=== PATIENT | female | born 1950 | race Caucasian/White ===

== ENCOUNTER 2018-04-29 13:14 | Day surgery (SDC) | payer OTHER ==
--- OUTSIDE RECORDS SUMMARY | 2018-04-29 13:16 | XMS REPORT | Clinical Summary ---
:1950 Author Organization [facility] Address [address] [place] [address] Care Team Providers Name Role Phone Asked, No Pcp Primary Care Provider Unavailable Allergies Active Allergy Reactions Severity Noted Date Comments Aspirin 10/25/2015 Medications Medication Sig Dispensed Refills Start Date End Date Status simvastatin (ZOCOR) 20 TK 1 T PO QHS 5 09/07/2015 Active MG tablet JANUMET 50-1,000 mg per TK 1 T PO BID. 4 09/23/2015 Active tablet HYDROcodone-acetaminophe TK 1 T PO Q 6 H 0 10/22/2015 Active n (NORCO) 7.5-325 mg per PRN P tablet Active Problems Problem Noted Date Closed displaced fracture of right patella with routine healing 12/28/2015 Social History Tobacco Use Types Packs/Day Years Used Date Never Smoker Smokeless Tobacco: Never Used Sex Assigned at Date Recorded Not on file Job Start Date Occupation Industry Not on file Not on file Not on file Travel History Travel Start Travel End No recent travel history available. Last Filed Vital Signs Not on file Plan of Treatment Health Maintenance Due Date Last Done Comments BREAST CANCER SCREENING 05/05/2001 COLON CANCER SCREENING 05/05/2001 SHINGLES VACCINES (#1) 05/05/2001 65+ PNEUMOCOCCAL VACCINE (1 of 2 - PCV13) 05/05/2016 PNEUMOCOCCAL POLYSACCHARIDE VACCINE AGE 65 AND OVER 05/05/2016 INFLUENZA VACCINE 10/03/2017 Results Not on fileafter 04/28/2017 Insurance Payer Benefit Plan / Group Subscriber ID Type Phone Address AETNA AETNA HMO,POS,EPO, MC/EC xxxxxxxxxx HMO Advance Directives Patient has advance care planning documents on file. For more information, please contact:Hamzah Russell[address] [place] [address]
[2018-04-29] MEDS ORDERED: NS 0.9% VIAL 10 ML ONE (13:32)
[2018-04-29] MEDS ORDERED: PHENYLEPHRINE 10% OPTH 5ML ONE (13:39)
[2018-04-29] MEDS ORDERED: NA CHLORIDE 0.9% 500 ML ONE (13:39)
[2018-04-29] MEDS ORDERED: CYCLOPENTOLATE 1% OPTH 2 ML ONE (13:40)
[2018-04-29] MEDS ORDERED: PHENYLEPHRINE 10% OPTH 5ML OPTH ONE ×2 (13:50→13:55)
[2018-04-29] MEDS ORDERED: CYCLOPENTOLATE 1% OPTH 2 ML OPTH ONE ×2 (13:50→13:55)
[2018-04-29] MEDS: BUPIVACAINE 0.25% PF 10 ML VIAL ONE ×2 (14:02→14:50)
[2018-04-29] MEDS: TETRACAINE HCL 0.5% 2ML OPTH ONE ×2 (14:02→14:49)
[2018-04-29] MEDS: LIDOCAINE 2% MPF 5 ML VIAL ONE ×2 (14:03→14:50)
[2018-04-29] MEDS: BALANCED SALT IRRIG PLAIN 500 ML BTL IRR ONE ×2 (14:44→15:05)
[2018-04-29] MEDS: EPINEPHRINE/PF 1 MG/ML AMP ONE ×2 (14:45→15:05)
[2018-04-29] MEDS: DUOVISC 1 KIT OPTH ONE ×4 (14:45→15:24)
[2018-04-29] MEDS: MOXIFLOXACIN HCL 10 DROPS/ML **OR USE OPTH ONE ×2 (14:46→15:30)
[2018-04-29] MEDS ORDERED: LIDOCAINE 1% MPF 5 ML VIAL ONE (14:47)
[2018-04-29] MEDS ORDERED: PROPOFOL 200 MG/20 ML VIAL IV ONE (14:47)
[2018-04-29] MEDS ORDERED: MOXIFLOXACIN HCL 10 DROPS/ML **OR USE OPTH ONE (15:22)
--- NOTE | 2018-04-29 15:37 | P.BOP ---
Preoperative diagnosis: Nuclear sclerotic cataract OS Postoperative diagnosis: Same Primary procedure: Phacoemulsification with IOL OS Estimated blood loss: None Anesthesia: Local (Subtenon's infusion with anesthesia for cataract surgery) Complications: None Implants: SA60WF +23.0 Transferred to: Other (Day surgery) Condition: Good
--- NOTE | 2018-04-30 02:57 | OP ---
Date of Procedure: 04/29/2018 Surgeon: Kiera Davis MD Anesthesiologist: Roc Crandall CRNA and Eleazar Petit MD. Preoperative Diagnosis: Nuclear sclerotic cataract, left eye. Operation Performed: Phacoemulsification with intraocular lens implant, left eye. Anesthesia: Per cataract surgery. Complications: None. Description Of Procedure: In day surgery, the patient was prepped with Betadine and draped. A conju nctival incision was made in the inferior nasal quadrant with Gregorio scissors. A sub-Tenon block c onsisting of a 1:1 mixture of 2% Xylocaine and 0.25% bupivacaine was placed through the conjunctival incision with a blunt cannula. A Honan balloon was placed over the eye and the patient was transferr ed to the operating room. In the operating room the patient was prepped and draped in the usual sterile fashion for ophthalmic surgery. A lid speculum was placed in the left eye. Two paracentesis sites were made superiorly and inferiorly in the limbal cornea. Viscoat was placed in the anterior chamber and a crescent blade wa s used to make a corneal groove and tunnel, and a keratome was used to enter the anterior chamber. P rovisc was placed in the anterior chamber and a 360 degree capsulotomy was performed with a cystitome . The lens was hydrodissected with BSS and rotated freely. The lens was removed with a stop and cho p technique. 33.0 Phaco CDE was used to remove the lens. Residual cortex was removed with the irrig ation and aspiration. Provisc was placed in the capsular bag. An SA60WF +23.0 lens was placed in th e capsular bag without complications. Irrigation and aspiration was used to remove residual viscoela stic. The paracentesis sites were hydrated with BSS. The wound and paracentesis sites were inspecte d and found to be watertight. Vigamox 0.07 cc was placed intracamerally at the end of the procedure. The eye was irrigated with balanced salt solution. The eye was patched with a soft cotton patch an d Hudson metal shield. The patient was returned to day surgery in good condition. Comments: Discharge Instructions: Ms. Howe is discharged to home in good condition. She is to follow up with Dr. Davis this afternoon and in the morning. TIANA/MODL Voice ID: [id number] Report ID: [id number]
== END 2018-04-29 16:15 | disposition home or self-care (01) ==
LOC: OR 13:14
PROVIDERS: ATTEND Ophthalmology Retina Specialist
PROC: 08RK3JZ Replacement of Left Lens with Synthetic Substitute, Percutaneous Approach (ICD-10-PCS; principal; 2018-04-29 12:30)
DX: H25.12 Age-related nuclear cataract, left eye (principal); H04.123 Dry eye syndrome of bilateral lacrimal glands; E11.9 Type 2 diabetes mellitus without complications; I10 Essential (primary) hypertension; E78.00 Pure hypercholesterolemia, unspecified; J45.909 Unspecified asthma, uncomplicated; M19.90 Unspecified osteoarthritis, unspecified site; Z87.820 Personal history of traumatic brain injury; Z83.3 Family history of diabetes mellitus; Z82.49 Family history of ischemic heart disease and other diseases of the circulatory system
CPT/HCPCS: 82962; 66984; J2704; J0171

== ENCOUNTER 2018-07-22 06:58 | Day surgery (SDC) | payer OTHER ==
--- OUTSIDE RECORDS SUMMARY | 2018-07-22 07:02 | XMS REPORT | Clinical Summary ---
:1950 Author Organization [facility] Address [address] [place] [id number] Care Team Providers Name Role Phone Asked, [...] AGE 65 AND OVER 05/05/2016 INFLUENZA VACCINE 10/03/2018 Results Not on fileafter 07/21/2017 Advance Directives Patient has advance care planning documents on file. For more information, please contact:Hamzah Shane[address] [place] [address]
[2018-07-22] MEDS ORDERED: NA CHLORIDE 0.9% 0 ML ONE (07:14)
[2018-07-22] MEDS ORDERED: CYCLOPENTOLATE 1% OPTH 2 ML ONE (07:17)
[2018-07-22] MEDS ORDERED: BUPIVACAINE 0.25% PF 10 ML VIAL ONE (07:17)
[2018-07-22] MEDS ORDERED: NA CHLORIDE 0.9% 500 ML ONE (07:17)
[2018-07-22] MEDS ORDERED: LIDOCAINE 2% MPF 5 ML VIAL ONE ×2 (07:17→08:27)
[2018-07-22] MEDS ORDERED: PHENYLEPHRINE 10% OPTH 5ML ONE (07:17)
[2018-07-22] MEDS ORDERED: TETRACAINE HCL 0.5% 4ML OPTH ONE (07:18)
[2018-07-22] MEDS ORDERED: PHENYLEPHRINE 10% OPTH 5ML OPTH ONE ×2 (07:18→07:33)
[2018-07-22] MEDS ORDERED: CYCLOPENTOLATE 1% OPTH 2 ML OPTH ONE ×2 (07:23→07:33)
[2018-07-22] MEDS ORDERED: NS 0.9% VIAL 10 ML ONE (08:07)
[2018-07-22] MEDS: BALANCED SALT IRRIG PLAIN 500 ML BTL IRR ONE ×2 (08:07→08:32)
[2018-07-22] MEDS: EPINEPHRINE/PF 1 MG/ML AMP ONE ×2 (08:08→08:32)
[2018-07-22] MEDS: DUOVISC 1 KIT OPTH ONE ×2 (08:08→08:50)
[2018-07-22] MEDS: MOXIFLOXACIN HCL 10 DROPS/ML **OR USE OPTH ONE ×3 (08:09→09:01)
[2018-07-22] MEDS ORDERED: PROPOFOL 200 MG/20 ML VIAL IV ONE (08:27)
[2018-07-22] MEDS ORDERED: FENTANYL CITR 100 MCG/2 ML ONE (08:58)
[2018-07-22] MEDS ORDERED: LIDOCAINE 1% MPF 2 ML AMPULE ONE (08:58)
--- NOTE | 2018-07-22 09:10 | P.BOP ---
Preoperative diagnosis: Nuclear sclerotic and cortical cataract OD Postoperative diagnosis: Same Primary procedure: Phacoemulsification with IOL OD Estimated blood loss: None Anesthesia: Local (Subtenon's infusion with anesthesia for cataract surgery) Complications: None Implants: SA60WF +23.5 Transferred to: Other (Day surgery) Condition: Good
--- NOTE | 2018-07-22 16:43 | OP ---
Date of Procedure: 07/22/2018 Surgeon: Kiera Davsi MD Preoperative Diagnosis: Nuclear sclerotic cataract and cortical cataract right eye. Operation Performed: Phacoemulsification with intraocular lens implant, right eye. Anesthesia: Roc Snow CRNA Anesthesia: Per cataract surgery. Complications: None Description Of Procedure: In day surgery, the patient was prepped with Betadine and draped. A conju nctival incision was made in the inferior nasal quadrant with Gregorio scissors. A sub-Tenon block c onsisting of a 1:1 mixture of 2% Xylocaine and 0.25% bupivacaine was placed through the conjunctival incision with a blunt cannula. A Honan balloon was placed over the eye and the patient was transferr ed to the operating room. In the operating room the patient was prepped and draped in the usual sterile fashion for ophthalmic surgery. A lid speculum was placed in the right eye. Two paracentesis sites were made superiorly an d inferiorly in the limbal cornea. Viscoat was placed in the anterior chamber and a crescent blade w as used to make a corneal groove and tunnel, and a keratome was used to enter the anterior chamber. Provisc was placed in the anterior chamber and a 360 degree capsulotomy was performed with a cystitom e. The lens was hydrodissected with BSS and rotated freely. The lens was removed with a stop and ch op technique. 18.14 phaco CDE was used to remove the lens. Residual cortex was removed with the irr igation and aspiration. Provisc was placed in the capsular bag. A SA60WF +23.5 Lens was placed in t he capsular bag without complications. Irrigation and aspiration were used to remove residual viscoe lastic. The paracentesis sites were hydrated with BSS. The wound and paracentesis sites were inspec dash and found to be watertight. Vigamox 0.07 cc was placed intracamerally at the end of the procedur e. The eye was irrigated with balanced salt solution. The eye was patched with a soft cotton patch and Hudson metal shield. The patient was returned to day surgery in good condition. Comments: Extra Viscoat was used. A 1% preservative-free lidocaine was placed in the anterior chamb er in the middle of the surgery for pain control. Discharge Instructions: Ms. Howe is discharged to home. She is to follow up with Dr. Davis' s office this afternoon and in the morning. TIANA/ILYA Voice ID: [id number] Report ID: [id number]
== END 2018-07-22 09:35 | disposition home or self-care (01) ==
LOC: OR 06:58
PROVIDERS: ATTEND Ophthalmology Retina Specialist
PROC: 08RJ3JZ Replacement of Right Lens with Synthetic Substitute, Percutaneous Approach (ICD-10-PCS; principal; 2018-07-22 08:30)
DX: H25.11 Age-related nuclear cataract, right eye (principal); H25.011 Cortical age-related cataract, right eye; E11.9 Type 2 diabetes mellitus without complications; E78.00 Pure hypercholesterolemia, unspecified; I10 Essential (primary) hypertension; Z79.4 Long term (current) use of insulin; Z79.899 Other long term (current) drug therapy; Z87.820 Personal history of traumatic brain injury
CPT/HCPCS: 66984; 82962; J2704; J0171; J3010; J2001

== ENCOUNTER 2021-02-07 13:56 | Emergency (ER) | payer OTHER ==
--- OUTSIDE RECORDS SUMMARY | 2021-02-07 13:59 | XMS REPORT | Continuity of Care Document ---
:1950 Author Organization [facility] t Address [address] [place] [address] [address]. [address] [place] [address] Care Team Providers Name Role Phone MELVIN Attending Clinician Unavailable Problems This patient has no known problems. Allergies, Adverse Reactions, Alerts This patient has no known allergies or adverse reactions. Medications This patient has no known medications. Procedures This patient has no known procedures. Encounters Start End Encounter Admission Attending Care Care Encounter Source Date/Time Date/Time Type Type Clinicians Facility Department ID 2020-05-17 2020-05-17 Outpatient MELVIN [facility] [id number] [address] [place] 00:00:00 00:00:00 GENARO [address] 2020-04-26 2020-04-26 Outpatient [facility] [id number] [address] [place] 00:00:00 00:00:[address] Results This patient has no known results.
[2021-02-07] MEDS ORDERED: KETOROLAC 30 MG/ML INJ ONE (14:37)
--- NOTE | 2021-02-07 14:46 | RAD REPORT ---
EXAM DESCRIPTION: CT - Thorax Wo Con - 02/07/2021 2:34 pm CLINICAL HISTORY: PAIN COMPARISON: No comparisons FINDINGS: Chest Wall: No suspicious thyroid nodules or pathologic lymphadenopathy. Lungs: No acute abnormality. Pleura: No significant effusions or pneumothorax. Mediastinum/robin: No pathologic lymphadenopathy. Pulmonary arteries/Aorta: Limited evaluation without contrast. No aortic aneurysm. Heart: No significant pericardial effusion. Normal heart size. Upper abdomen: No acute abnormality. Bones: No acute abnormality. Several slightly angulated left-sided fourth through seventh ribs and ri ght 5th through 7th ribs without discrete fracture line. All CT scans are performed using dose optimization technique as appropriate and may include automated exposure control or mA/KV adjustment according to patient size. IMPRESSION: Subtle angulation of several ribs anteriorly and bilaterally could represent acute nondi splaced rib fractures. A discrete fracture line is not identified so they may be chronic. No other si gnificant trauma is identified.
--- NOTE | 2021-02-07 15:23 | ER ---
Nurse's Notes [facility] Name: Mac Howe Age: 70 yrs Sex: Female : 1950 Arrival Date: 02/07/2021 Time: 14:01 Bed 20 Private MD: Ld Woodson E Diagnosis: Fall on same level from slipping, tripping and stumbling with subsequent striking against object;Rib pain Presentation: 02/07 14:15 Chief complaint: Patient states: Tripped and fell again door stoop about 2-3 days ago, iw states lower part of chest 'feels sore'. Denies blood thinner, hitting head, or nausea/vomiting. States took 'extra strength advil' this morning around 0700. Coronavirus screen: Vaccine status: Patient reports receiving the 2nd dose of the covid vaccine. Client denies travel out of the [place] in the last 14 days. Ebola Screen: Patient negative for fever greater than or equal to 101.5 degrees Fahrenheit, and additional compatible Ebola Virus Disease symptoms. Initial Sepsis Screen: Does the patient meet any 2 criteria? No. Patient's initial sepsis screen is negative. Does the patient have a suspected source of infection? No. Patient's initial sepsis screen is negative. Risk Assessment: Do you want to hurt yourself or someone else? Patient reports no desire to harm self or others. Onset of symptoms was February 04, 2021. 14:15 Method Of Arrival: Ambulatory iw 14:15 Acuity: DIDI 3 iw Triage Assessment: 14:17 General: Appears in no apparent distress. comfortable, Behavior is calm, cooperative. iw Pain: Complains of pain in diaphragm Pain currently is 8 out of 10 on a pain scale. 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 - Social history:: Smoking status: Patient denies any tobacco usage or history of. Screenin:39 Abuse screen: Denies threats or abuse. Denies injuries from another. Nutritional jh5 screening: No deficits noted. Tuberculosis screening: No symptoms or risk factors identified. Fall Risk Fall in past 12 months (25 points). Assessment: 14:40 Injury Description:. jh5 14:41 General: Appears in no apparent distress. well groomed, Behavior is calm, cooperative, jh5 appropriate for age. Neuro: Level of Consciousness is awake, alert, obeys commands, Oriented to person, place, time, situation, Appropriate for age Speech is normal. Cardiovascular: No deficits noted. Capillary refill < 3 seconds Patient's skin is warm and dry. Respiratory: Airway is patent. Vital Signs: 14:15 BP 109 / 59; Pulse 81; Resp 16; Temp 98.2; Pulse Ox 99% ; Weight 67.13 kg; Height 5 ft. iw 3 in. (160.02 cm); Pain 8/10; 14:15 Body Mass Index 26.22 (67.13 kg, 160.02 cm) iw ED Course: 14:01 Patient arrived in ED. am2 14:02 Ld Woodson MD is Private Physician. am2 14:16 Valery Patrick FNP-C [facility]. kb 14:16 Gustavo Matos MD is Attending Physician. kb 14:17 Triage completed. iw 14:17 Arm band placed on. iw 14:26 Heather Huerta, RN is Primary Nurse. jh5 14:34 CT Chest Wo Con In Process Unspecified. EDMS 14:39 Patient has correct armband on for positive identification. Bed in low position. Call [facility] in reach. Side rails up X 1. 14:39 No provider procedures requiring assistance completed. 5 Administered Medications: 14:38 Drug: Ketorolac 30 mg Route: IM; Site: left deltoid; 5 Outcome: 15:22 Discharge ordered by . kb 16:20 Patient left the ED. 5 Signatures: Dispatcher [employer] EDMS Valery Patrick FNP-C FNP-Audra Mota RN RN Sarah Zhong am2 Heather Huerta RN RN 5 Corrections: (The following items were deleted from the chart) 14:18 14:15 Chief complaint: Patient states: Tripped and fell again door stoop about 2-3 days iw ago, states lower part of chest 'feels sore'. Denies blood thinner, hitting head, or nausea/vomiting. iw
--- NOTE | 2021-02-07 15:23 | EDPHYS ---
Physician Documentation [facility] Name: Mac Howe Age: 70 yrs Sex: Female : 1950 Arrival Date: 02/07/2021 Time: 14:01 Bed 20 Private MD: Ld Woodson E ED Physician Gustavo Matos HPI: 02/07 16:04 This 70 yrs old Female presents to ER via Ambulatory with complaints of Fall Injury, kb Chest Pain, Abdominal Pain. 16:04 Details of fall: The patient fell from an upright position. Onset: The symptoms/episode kb began/occurred 3 day(s) ago. Associated injuries: The patient sustained injury to the chest, specifically the diaphragm, tenderness. Severity of symptoms: At their worst the symptoms were moderate, in the emergency department the symptoms are unchanged. The patient has not experienced similar symptoms in the past. The patient has not recently seen a physician. Patient states she fell out of her front door and hit her chest against a railing on porch. States it happened 3 days ago. Complains of pain to lower anterior ribs.. 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 - Social history:: Smoking status: Patient denies any tobacco usage or history of. ROS: 16:02 Constitutional: Negative for fever, chills, and weight loss. kb 16:02 Cardiovascular: Positive for lower rib pain. 16:02 All other systems are negative. Exam: 16:04 Constitutional: This is a well developed, well nourished patient who is awake, alert, kb and in no acute distress. Head/Face: Normocephalic, atraumatic. Cardiovascular: Regular rate and rhythm with a normal S1 and S2. No gallops, murmurs, or rubs. No pulse deficits. Respiratory: Respirations even and unlabored. No increased work of breathing. Talking in full sentences Skin: Warm, dry with normal turgor. Normal color. MS/ Extremity: Pulses equal, no cyanosis. Neurovascular intact. Full, normal range of motion. Neuro: Awake and alert, GCS 15, oriented to person, place, time, and situation. Moves all extremities. Normal gait. Psych: Awake, alert, with orientation to person, place and time. Behavior, mood, and affect are within normal limits. 16:04 Chest/axilla: Inspection: normal, Palpation: tenderness, that is moderate, of the diaphragm, that totally reproduces the patient's complaints. Vital Signs: 14:15 BP 109 / 59; Pulse 81; Resp 16; Temp 98.2; Pulse Ox 99% ; Weight 67.13 kg; Height 5 ft. iw 3 in. (160.02 cm); Pain 8/10; 14:15 Body Mass Index 26.22 (67.13 kg, 160.02 cm) iw MDM: 14:16 Patient medically screened. kb 16:00 Data reviewed: vital signs, nurses notes. Data interpreted: Pulse oximetry: on room air kb is 99 %. Interpretation: normal. Counseling: I had a detailed discussion with the patient and/or guardian regarding: the historical points, exam findings, and any diagnostic results supporting the discharge/admit diagnosis, radiology results, the need for outpatient follow up, a family practitioner, to return to the emergency department if symptoms worsen or persist or if there are any questions or concerns that arise at home. 16:04 ED course: [employer] aware reviewed. kb 02/07 14:22 Order name: CT Chest Wo Con; Complete Time: 14:53 kb Administered Medications: 14:38 Drug: Ketorolac 30 mg Route: IM; Site: left deltoid; jh5 Disposition: 02/08 07:03 Co-signature as Attending Physician, Gustavo Matos MD I agree with the assessment and aldo plan of care. Disposition Summary: 02/07/21 15:22 Discharge Ordered Location: Home kb Condition: Stable kb Diagnosis - Fall on same level from slipping, tripping and stumbling with subsequent striking kb against object - Rib pain kb Followup: kb - With: Emergency Department - When: As needed - Reason: Worsening of condition Followup: kb - With: Private Physician - When: 2 - 3 days - Reason: Recheck today's complaints, Continuance of care, Re-evaluation by your physician Discharge Instructions: - Discharge Summary Sheet kb - Rib Fracture, [id number] kb Forms: - Medication Reconciliation Form kb - Thank You Letter kb - Antibiotic Education kb - Prescription Opioid Use kb Prescriptions: - Tramadol 50 mg Oral Tablet - take 1 tablet by ORAL route every 8 hours as needed; 12 tablet; Refills: 0, kb Product Selection Permitted Signatures: Dispatcher [employer] Valery Lyons, GERRY GONZALEZ-Gustavo Beatty MD MD cha Williams, Irene, RN Heather Salvador RN RN jh5
[2021-02-07 16:35] VITALS: BP 109/59; TEMP 98.2; O2SAT 99
== END 2021-02-07 16:20 | disposition home or self-care (01) ==
LOC: ER 13:56
DX: R07.81 Pleurodynia (principal); W01.198A Fall on same level from slipping, tripping and stumbling with subsequent striking against other object, initial encounter; E11.9 Type 2 diabetes mellitus without complications; I10 Essential (primary) hypertension; Z87.820 Personal history of traumatic brain injury; Z88.6 Allergy status to analgesic agent
CPT/HCPCS: 71250; 96372; 99283

== ENCOUNTER 2021-06-15 10:48 | Emergency (ER) | payer OTHER ==
--- OUTSIDE RECORDS SUMMARY | 2021-06-15 10:51 | XMS REPORT | Continuity of Care Document ---
:1950 Author Organization [facility] t Address [address] [place] [address] Dr. James [address] [place] [address] Care Team Providers Name Role Phone MELVIN [...] Facility Department ID 2020-05-17 2020-05-17 Outpatient MELVIN [facility] [id number] [address] [place] 00:00:00 00:00:00 GENARO [address] 2020-04-26 2020-04-26 Outpatient [facility] [id number] [address] [place] 00:00:00 00:00:[address] Results This patient has no known results.
[2021-06-15] MEDS ORDERED: KETOROLAC 30 MG/ML INJ ONE (11:16)
--- NOTE | 2021-06-15 11:47 | RAD REPORT ---
EXAM DESCRIPTION: CT - Head C Spine Mpr Wo Con - 06/15/2021 11:34 am CLINICAL HISTORY: Head and neck injury status post fall. Head and neck pain COMPARISON: 2016 TECHNIQUE: Computed axial tomography of the head and cervical spine was obtained. Sagittal and coronal reconstruction was performed. All CT scans are performed using dose optimization technique as appropriate and may include automated exposure control or mA/KV adjustment according to patient size. FINDINGS: An intracranial bleed is not seen. The ventricles are normal in caliber. An extra-axial fl uid collection is not noted. Small amount of fluid within the sphenoid sinus probably indicating sinu sitis A cervical fracture is not visualized. No dislocation is noted. IMPRESSION: No acute intracranial abnormality is seen. A cervical fracture is not visualized. If the patient continues to have symptoms to suggest intracra nial /spinal cord pathology then MRI would be recommended
--- NOTE | 2021-06-15 11:52 | RAD REPORT ---
EXAM DESCRIPTION: CTSpine Lumbar Wo Con06/15/2021 11:35 am CLINICAL HISTORY: Back pain status post fall COMPARISON: None TECHNIQUE: Computed axial tomography lumbar spine was obtained with coronal and sagittal reconstruct ion. All CT scans are performed using dose optimization technique as appropriate and may include automated exposure control or mA/KV adjustment according to patient size. FINDINGS: No fracture is seen. No dislocation is noted. Spondylosis lower lumbar spine. IMPRESSION: Negative for a lumbar fracture. If patient continues have symptoms to suggest spinal canal pathology MRI would recommended
--- NOTE | 2021-06-15 12:07 | EDPHYS ---
Physician Documentation [facility] Name: Mac Howe Age: 71 yrs Sex: Female : 1950 Arrival Date: 06/15/2021 Time: 10:52 Bed Waiting Private MD: ED Physician Venkata Barnes HPI: 06/15 11:58 This 71 yrs old Female presents to ER via Wheelchair with complaints of Fall Injury. jr8 11:58 Details of fall: The patient fell from an upright position, while standing. Onset: The jr8 symptoms/episode began/occurred acutely, 1 week(s) ago. Associated injuries: The patient sustained injury to the head, pain, neck injury, pain, injury to the low back, pain, injury to the chest, pain with movement, tenderness, right ankle. Severity of symptoms: At their worst the symptoms were moderate, in the emergency department the symptoms are unchanged. The patient has not experienced similar symptoms in the past. The patient has not recently seen a physician. Patient stated that she fell after tripping into a hole approximately 1 week ago. Denies loss conscious at that time but is had continued pain. Tried to see her primary care physician for the continued pain but referred her to the emergency room for further evaluation at that time.. Historical: - Allergies: 11:08 Aspirin; ll1 11:08 mold; ll1 - PMHx: 11:08 Diabetes - IDDM; Hypertension; some times confused a little due to tbi; Tramatic Brain ll1 Injury; Hypercholesterolemia; - PSHx: 11:08 TMJ; ll1 - Immunization history:: Client reports receiving the 2nd dose of the Covid vaccine. - Social history:: Smoking status: Patient denies any tobacco usage or history of. - Immunization history: Last tetanus immunization: - up to date. ROS: 11:58 Eyes: Negative for injury, pain, redness, and discharge, ENT: Negative for injury, jr8 pain, and discharge, Respiratory: Negative for shortness of breath, cough, wheezing, and pleuritic chest pain, Abdomen/GI: Negative for abdominal pain, nausea, vomiting, diarrhea, and constipation, Skin: Negative for injury, rash, and discoloration. 11:58 Neck: Positive for pain with movement, pain at rest, tenderness, bony tenderness. 11:58 Cardiovascular: Positive for chest pain, with movement. 11:58 Back: Positive for pain at rest, pain with movement, of the lumbar area. 11:58 MS/extremity: Positive for pain, tenderness, of the right ankle. 11:58 Neuro: Positive for headache. Exam: 11:58 Constitutional: This is a well developed, well nourished patient who is awake, alert, jr8 and in no acute distress. Head/Face: Normocephalic, atraumatic. Eyes: Pupils equal round and reactive to light, extra-ocular motions intact. Lids and lashes normal. Conjunctiva and sclera are non-icteric and not injected. Cornea within normal limits. Periorbital areas with no swelling, redness, or edema. ENT: Nares patent. No nasal discharge, no septal abnormalities noted. Tympanic membranes are normal and external auditory canals are clear. Oropharynx with no redness, swelling, or masses, exudates, or evidence of obstruction, uvula midline. Mucous membranes moist. Cardiovascular: Regular rate and rhythm with a normal S1 and S2. No gallops, murmurs, or rubs. Normal PMI, no JVD. No pulse deficits. Respiratory: Lungs have equal breath sounds bilaterally, clear to auscultation and percussion. No rales, rhonchi or wheezes noted. No increased work of breathing, no retractions or nasal flaring. Abdomen/GI: Soft, non-tender, with normal bowel sounds. No distension or tympany. No guarding or rebound. No evidence of tenderness throughout. Skin: Warm, dry with normal turgor. Normal color with no rashes, no lesions, and no evidence of cellulitis. MS/ Extremity: Pulses equal, no cyanosis. Neurovascular intact. Full, normal range of motion. Neuro: Awake and alert, GCS 15, oriented to person, place, time, and situation. Cranial nerves II-XII grossly intact. Motor strength 5/5 in all extremities. Sensory grossly intact. 11:58 Neck: External neck: tenderness, that is mild, of the left mid cervical area, right mid cervical area, left trapezius, lower cervical area and right trapezius, C-spine: vertebral tenderness, is not appreciated, Trachea: is midline with no obvious abnormalities, ROM/movement: pain, that is mild, with any movement. 11:58 Chest/axilla: Inspection: normal, Palpation: tenderness, that is mild, of the left lateral posterior chest and left lateral anterior chest. 11:58 Back: pain, that is mild, of the lumbar area, ROM is painful, with all movement, normal spinal alignment noted, vertebral tenderness, is appreciated at L1, L2 and L3. Vital Signs: 11:05 BP 148 / 61; Pulse 81; Resp 16; Temp 98.1; Pulse Ox 99% ; Weight 64.41 kg; Height 5 ft. ll1 6 in. (167.64 cm); Pain 9/10; 12:16 BP 119 / 57; Pulse 78; Resp 16; Pulse Ox 100% on R/A; Pain 7/10; ll1 11:05 Body Mass Index 22.92 (64.41 kg, 167.64 cm) ll1 Yareli Coma Score: 12:17 Eye Response: spontaneous(4). Verbal Response: oriented(5). Motor Response: obeys ll1 commands(6). Total: 15. Trauma Score (Adult): 12:17 Eye Response: spontaneous(1); Verbal Response: oriented(1); Motor Response: obeys ll1 commands(2); Systolic BP: > 89 mm Hg(4); Respiratory Rate: 10 to 29 per min(4); Yareli Score: 15; Trauma Score: 12 MDM: 11:01 Patient medically screened. [facility] 11:58 Data reviewed: vital signs, nurses notes, radiologic studies, CT scan, plain films. jr8 Data interpreted: Pulse oximetry: on room air is 99 %. Interpretation: normal. Counseling: I had a detailed discussion with the patient and/or guardian regarding: the historical points, exam findings, and any diagnostic results supporting the discharge/admit diagnosis, radiology results, the need for outpatient follow up, a family practitioner, to return to the emergency department if symptoms worsen or persist or if there are any questions or concerns that arise at home. ED course: Discussed with patient that there is no acute fracture or other acute findings on plain films or CT at this time. Needs to continue to follow-up with her primary care physician for further evaluation and management from her fall. We will send her home with a few days of pain medicine to help her. Needs to come back if she were to acutely worsen or have any other change in the meantime. Patient given plan at this time.. 04/13 11:10 Order name: CT Head C Spine; Complete Time: 11:56 jr8 06/15 11:10 Order name: XRAY Chest Pa And Lat (2 Views) jr8 06/15 11:10 Order name: CT Lumbar Spine Wo Con; Complete Time: 11:56 jr8 06/15 11:10 Order name: Ankle Right 3 View XRAY jr8 Administered Medications: 11:15 Drug: Ketorolac 15 mg Route: IM; Site: right deltoid; ll1 12:18 Follow up: Response: No adverse reaction; Pain is decreased; RASS: Alert and Calm (0) ll1 Disposition: 14:15 Co-signature as Attending Physician, Venakta Barnes DO I was immediately available on-site ms3 in the Emergency Department for consultation in the care of the patient.. Disposition Summary: 06/15/21 12:07 Discharge Ordered Location: Home jr8 Problem: new jr8 Symptoms: have improved jr8 Condition: Stable jr8 Diagnosis - Acute pain due to trauma jr8 Followup: jr8 - With: Private Physician - When: 5 - 6 days - Reason: Recheck today's complaints, Continuance of care, Re-evaluation by your physician Discharge Instructions: - Discharge Summary Sheet jr8 - Head Injury, Adult jr8 - Muscle Pain, Adult jr8 Forms: - Medication Reconciliation Form jr8 - Thank You Letter jr8 - Antibiotic Education jr8 - Prescription Opioid Use jr8 Prescriptions: - Anaprox DS 550 mg Oral Tablet - take 1 tablet by ORAL route every 12 hours As needed; 20 tablet; Refills: 0, jr8 Product Selection Permitted - Skelaxin 800 mg Oral Tablet - take 1 tablet by ORAL route every 8 hours As needed; 30 tablet; Refills: 0, jr8 Product Selection Permitted Signatures: Dispatcher [employer] EDAndrea Hernandez PA PA jr8 Landry Lyn, RN RN ll1 Venkata Barnes DO DO ms3
--- NOTE | 2021-06-15 12:07 | ER ---
Nurse's Notes [facility] Name: Mac Howe Age: 71 yrs Sex: Female : 1950 Arrival Date: 06/15/2021 Time: 10:52 Bed Waiting Private MD: Diagnosis: Acute pain due to trauma Presentation: 06/15 11:05 Chief complaint: Patient states: Fell one week ago (stepped in hole). Head and neck ll1 pain still. Bilateral knee and R ankle pain since. B rib pains. No LOC. Coronavirus screen: Vaccine status: Patient reports receiving the 2nd dose of the covid vaccine. Client denies travel out of the [place] in the last 14 days. At this time, the client does not indicate any symptoms associated with coronavirus-19. Ebola Screen: Patient denies travel to an Ebola-affected area in the 21 days before illness onset. Initial Sepsis Screen: Does the patient meet any 2 criteria? No. Patient's initial sepsis screen is negative. Does the patient have a suspected source of infection? Yes: Bone or joint infection. Risk Assessment: Do you want to hurt yourself or someone else? Patient reports no desire to harm self or others. Onset of symptoms was June 08, 2021. 11:05 Method Of Arrival: Wheelchair ll1 11:05 Acuity: DIDI 3 ll1 12:19 Care prior to arrival: None. Mechanism of Injury: Fall. Trauma event details: Injury ll1 occurred in the [facility]. Triage Assessment: 11:09 General: Appears uncomfortable, Behavior is cooperative, appropriate for age. Pain: ll1 Complains of pain in head Quality of pain is described as aching. Neuro: Reports headache. Musculoskeletal: Reports pain in right leg and left leg. Trauma Activation: Not Applicable Physician: ED Physician; Name: ; Notified At: ; Arrived At: Physician: General Surgeon; Name: ; Notified At: ; Arrived At: Physician: Radiology; Name: ; Notified At: ; Arrived At: Physician: Respiratory; Name: ; Notified At: ; Arrived At: Physician: Lab; Name: ; Notified At: ; Arrived At: Historical: - Allergies: 11:08 Aspirin; ll1 11:08 mold; ll1 - PMHx: 11:08 Diabetes - IDDM; Hypertension; some times confused a little due to tbi; Tramatic Brain ll1 Injury; Hypercholesterolemia; - PSHx: 11:08 TMJ; ll1 - Immunization history:: Client reports receiving the 2nd dose of the Covid vaccine. - Social history:: Smoking status: Patient denies any tobacco usage or history of. - Immunization history: Last tetanus immunization: - up to date. Screenin:17 Abuse screen: Denies threats or abuse. Nutritional screening: No deficits noted. ll1 Tuberculosis screening: No symptoms or risk factors identified. Fall Risk Fall in past 12 months (25 points). Ambulatory Aid- Crutches/Cane/Walker (15 pts). Gait- Impaired (20 pts.). Total Torres Fall Scale indicates High Risk Score (45 or more points). Fall prevention measures have been instituted. Side Rails Up X 2 Frequent Obs/Assessments Occuring As available patient and family educated on Fall Prevention Program and Strategies. Primary Survey: 12:17 NO uncontrolled hemorrhage observed. A: The patient is alert. Airway: patent. ll1 Breathing/Chest: Chest inspection: symmetrical rise and fall of the chest. Circulation: Skin color: pink. Disability Alert. Exposure/Environment: There is no evidence of uncontrolled external bleeding. 12:18 Reassessment Breathing/Chest Respiratory effort Spontaneous Unlabored. ll1 Assessment: 12:10 Reassessment: No changes from previously documented assessment. Patient and/or family ll1 updated on plan of care and expected duration. Pain level reassessed. Patient is alert, oriented x 3, equal unlabored respirations, skin warm/dry/pink. Patient states feeling better. Vital Signs: 11:05 BP 148 / 61; Pulse 81; Resp 16; Temp 98.1; Pulse Ox 99% ; Weight 64.41 kg; Height 5 ft. ll1 6 in. (167.64 cm); Pain 9/10; 12:16 BP 119 / 57; Pulse 78; Resp 16; Pulse Ox 100% on R/A; Pain 7/10; ll1 11:05 Body Mass Index 22.92 (64.41 kg, 167.64 cm) ll1 Yareli Coma Score: 12:17 Eye Response: spontaneous(4). Verbal Response: oriented(5). Motor Response: obeys ll1 commands(6). Total: 15. Trauma Score (Adult): 12:17 Eye Response: spontaneous(1); Verbal Response: oriented(1); Motor Response: obeys ll1 commands(2); Systolic BP: > 89 mm Hg(4); Respiratory Rate: 10 to 29 per min(4); Hannibal Score: 15; Trauma Score: 12 ED Course: 10:52 Patient arrived in ED. rg4 11:01 Andrea Roland PA is PHCP. jr8 11:01 Venkata Barnes DO is Attending Physician. jr8 11:08 Triage completed. ll1 11:09 Arm band placed on. ll1 11:36 CT Head C Spine In Process Unspecified. EDMS 11:36 CT Lumbar Spine Wo Con In Process Unspecified. EDMS 12:18 No provider procedures requiring assistance completed. Patient did not have IV access ll1 during this emergency room visit. 12:19 Patient has correct armband on for positive identification. Bed in low position. Call ll1 light in reach. Side rails up X 1. Cardiac monitoring not applicable on this patient. 12:19 Patient maintains SpO2 saturation greater than 95% on room air. ll1 12:19 Thermoregulation: warm blanket given to patient. ll1 12:31 XRAY Chest Pa And Lat (2 Views) In Process Unspecified. EDMS 12:31 Ankle Right 3 View XRAY In Process Unspecified. EDMS Administered Medications: 11:15 Drug: Ketorolac 15 mg Route: IM; Site: right deltoid; ll1 12:18 Follow up: Response: No adverse reaction; Pain is decreased; RASS: Alert and Calm (0) ll1 Intake: 12:17 PO: 0ml; Total: 0ml. ll1 Output: 12:17 Urine: 0ml; Total: 0ml. ll1 Outcome: 12:07 Discharge ordered by . jr8 12:19 Discharged to home via wheelchair. ll1 12:19 Condition: stable 12:19 Discharge instructions given to patient, Instructed on discharge instructions, follow up and referral plans. no drinking with medication, no driving heavy equipment, medication usage, Demonstrated understanding of instructions, follow-up care, medications, Prescriptions given X 2. 12:19 Patient's length of stay was not longer than 2 hours. ll1 12:20 Patient left the ED. ll1 Signatures: Dispatcher [employer] EDFL Andrea Roland PA PA jr8 Savannah Hernández rg4 Landry Lyn, RN RN ll1
[2021-06-15 12:26] VITALS: TEMP 98.1
[2021-06-15 12:28] VITALS: BP 119/57; O2SAT 100
--- NOTE | 2021-06-15 12:36 | RAD REPORT ---
EXAM DESCRIPTION: RAD - Chest Pa And Lat (2 Views) - 06/15/2021 12:29 pm CLINICAL HISTORY: TRAUMA COMPARISON: CHEST SINGLE VIEW dated 03/07/2015 FINDINGS: Lines: None. Lungs: No evidence of edema or pneumonia. Pleural: No significant pleural effusions or pneumothorax. Cardiac: The heart size is within normal limits. Bones: No acute fractures. Other: IMPRESSION: No acute cardiopulmonary disease.
--- NOTE | 2021-06-15 12:43 | RAD REPORT ---
EXAM DESCRIPTION: RAD - Ankle Right 3 View - 06/15/2021 12:29 pm CLINICAL HISTORY: PAIN COMPARISON: No comparisons FINDINGS/IMPRESSION: No acute fracture. No malalignment. Calcaneal spurring. Osteopenia.
== END 2021-06-15 12:20 | disposition home or self-care (01) ==
LOC: ER 10:48
DX: G89.11 Acute pain due to trauma (principal); M54.2 Cervicalgia; R51.9 Headache, unspecified; W01.0XXA Fall on same level from slipping, tripping and stumbling without subsequent striking against object, initial encounter; I10 Essential (primary) hypertension; E11.9 Type 2 diabetes mellitus without complications; Z87.820 Personal history of traumatic brain injury; Z88.6 Allergy status to analgesic agent; Z91.048 Other nonmedicinal substance allergy status
CPT/HCPCS: 70450; 71046; 72125; 72131

== ENCOUNTER 2021-06-21 10:01 | Emergency (ER) | payer OTHER ==
--- OUTSIDE RECORDS SUMMARY | 2021-06-21 10:04 | XMS REPORT | Continuity of Care Document ---
:1950 Author Organization [facility] t Address [address] [place] [address] [address] [place] [address] Care Team Providers Name Role Phone MELVIN [...] Department ID 2020-05-17 2020-05-17 Outpatient MELVIN [facility] [id number] 00:00:00 00:00:00 GENARO [address] 2020-04-26 2020-04-26 Outpatient [facility] [id number] 00:00:00 00:00:[address] Results This patient has no known results.
--- NOTE | 2021-06-21 11:56 | RAD REPORT ---
EXAM DESCRIPTION: RAD - Chest Single View - 06/21/2021 11:50 am CLINICAL HISTORY: dizziness Chest pain. COMPARISON: Chest Pa And Lat (2 Views) dated 06/15/2021; CHEST SINGLE VIEW dated 03/07/2015 FINDINGS: Portable technique limits examination quality. The lungs are emphysematous but grossly clear. The heart is upper limit of normal in size. No displac ed fractures. IMPRESSION: COPD.
--- NOTE | 2021-06-21 11:56 | RAD REPORT ---
EXAM DESCRIPTION: RAD - Hip Left 2 View - 06/21/2021 11:49 am CLINICAL HISTORY: PAIN COMPARISON: No comparisons FINDINGS: Arthritic changes are present in the left hip. No acute fracture or dislocation is evident . If the patient has difficulty with weight-bearing on the left leg, CT or MR imaging in left hip wou ld be advised.
--- NOTE | 2021-06-21 12:00 | RAD REPORT ---
EXAM DESCRIPTION: CT - CTHCSPWOC - 06/21/2021 11:49 am CLINICAL HISTORY: Trauma, head and neck injury. Headache, Fall injury COMPARISON: Head C Spine Mpr Wo Con dated 06/15/2021; CT HEAD CSPINE MPR WO CONTRAST dated 03/07/2015 TECHNIQUE: Axial 5 mm thick images of the head were obtained. Axial 2 mm thick images of the cervical spine were obtained with sagittal and coronal reconstruction images generated and reviewed. All CT scans are performed using dose optimization technique as appropriate and may include automated exposure control or mA/KV adjustment according to patient size. FINDINGS: CT HEAD WITHOUT CONTRAST: No acute hemorrhage, hydrocephalus or extra-axial collection is identified.Mild generalized brain atr ophy is present with mild periventricular and deep white matter chronic microvascular ischemic change s.No areas of brain edema or midline shift. The paranasal sinuses and mastoids are clear except for mild fluid in the sphenoid sinus.The calvariu m is intact. CT CERVICAL SPINE WITHOUT CONTRAST: No fracture or subluxation.Mild lower cervical degenerative changes.No prevertebral soft tissues swel ling is identified. IMPRESSION: No acute intracranial or cervical spine findings.
[2021-06-21 12:15] LABS: Absolute Lymphocytes (CBC) 2.7 K/uL (0.7-4.9); Hematocrit 40.3 % (36.0-45.0); Lymphocytes % 40.4 % (15.3-44.8); MPV 9.3 fL (7.6-11.3); RBC Red Blood Cell Count 4.31 M/uL (3.86-4.86)
[2021-06-21 12:22] LABS: Protime INR 0.94
[2021-06-21 12:27] LABS: Potassium 4.1 mmol/L (3.5-5.1); Troponin High Sensitivity 10.6 pg/mL (<58.9)
--- NOTE | 2021-06-21 14:04 | ER ---
Nurse's Notes [facility] Name: Mac Howe Age: 71 yrs Sex: Female : 1950 Arrival Date: 06/21/2021 Time: 10:04 Bed 14 Private MD: Ld Woodson E Diagnosis: Fall on same level, unspecified;Headache;Dehydration Presentation: 06/21 11:14 Coronavirus screen: At this time, the client does not indicate any symptoms associated iw with coronavirus-19. Ebola Screen: Patient negative for fever greater than or equal to 101.5 degrees Fahrenheit, and additional compatible Ebola Virus Disease symptoms Patient denies exposure to infectious person. Patient denies travel to an Ebola-affected area in the 21 days before illness onset. No symptoms or risks identified at this time. Initial Sepsis Screen: Does the patient meet any 2 criteria? No. Patient's initial sepsis screen is negative. Does the patient have a suspected source of infection? No. Patient's initial sepsis screen is negative. Risk Assessment: Do you want to hurt yourself or someone else? Patient reports no desire to harm self or others. 11:14 Method Of Arrival: Ambulatory iw 11:14 Chief complaint: Patient states: Sunday she was standing inside her sister in laws house and she fainted, states she was out for five minutes, and now she is dizzy every time she stands up, and has pain in left side of head where she hit. Care prior to arrival: None. 11:14 Acuity: DIDI 3 iw 11:16 Mechanism of Injury: Fall from standing position. Trauma event details: Injury occurred iw in the [facility]. 11:16 Onset of symptoms was June 19, 2021. iw Triage Assessment: 14:30 General: Appears uncomfortable, Behavior is calm, cooperative, appropriate for age. ll1 Pain: Complains of pain in head Quality of pain is described as aching. Neuro: Reports headache. Cardiovascular: Reports fatigue, syncope. Musculoskeletal: Reports pain in head. Injury Description: Bruise. Trauma Activation: Not Applicable Physician: ED Physician; Name: ; Notified At: ; Arrived At: Physician: General Surgeon; Name: ; Notified At: ; Arrived At: Physician: Radiology; Name: ; Notified At: ; Arrived At: Physician: Respiratory; Name: ; Notified At: ; Arrived At: Physician: Lab; Name: ; Notified At: ; Arrived At: Historical: - Allergies: 11:12 Aspirin; iw 11:12 MOLD; iw - Home Meds: 11:12 Metformin Oral [Active]; lisinopril Oral [Active]; Ozempic subcutaneous [Active]; iw - PMHx: 11:12 Diabetes - IDDM; Hypercholesterolemia; Hypertension; some times confused a little due iw to tbi; Tramatic Brain Injury; macular degeneration; - PSHx: 11:12 TMJ; iw - Immunization history:: Adult Immunizations Last tetanus immunization: up to date. - Immunization history: Last tetanus immunization: - up to date. - Social history:: Smoking status: Patient denies any tobacco usage or history of. Screenin:04 Abuse screen: Denies threats or abuse. Nutritional screening: No deficits noted. ll1 Tuberculosis screening: No symptoms or risk factors identified. Fall Risk Fall in past 12 months (25 points). IV access (20 points). Ambulatory Aid- Crutches/Cane/Walker (15 pts). Total Torres Fall Scale indicates High Risk Score (45 or more points). Fall prevention measures have been instituted. Side Rails Up X 2 Placed Close to Nursing Station Frequent Obs/Assessments Occuring As available patient and family educated on Fall Prevention Program and Strategies. Primary Survey: 13:05 NO uncontrolled hemorrhage observed. A: Airway: patent. Breathing/Chest: Respiratory ll1 effort: spontaneous, unlabored. Disability Alert. Exposure/Environment: There is no evidence of uncontrolled external bleeding. 15:43 Circulation: Pulses: palpable right radial artery and left radial artery. Reassessment ll1 Breathing/Chest Breath sounds Clear Circulation Color [place]. Assessment: 13:04 Reassessment: No changes from previously documented assessment. Patient and/or family ll1 updated on plan of care and expected duration. Pain level reassessed. Patient is alert, oriented x 3, equal unlabored respirations, skin warm/dry/pink. 14:05 Reassessment: No changes from previously documented assessment. Patient and/or family ll1 updated on plan of care and expected duration. Pain level reassessed. Patient is alert, oriented x 3, equal unlabored respirations, skin warm/dry/pink. Patient states feeling better. Vital Signs: 11:13 BP 106 / 57; Pulse 78; Resp 16; Temp 97.7; Pulse Ox 97% on R/A; Weight 61.23 kg; Height iw 5 ft. 6 in. (167.64 cm); 11:13 Body Mass Index 21.79 (61.23 kg, 167.64 cm) iw Yareli Coma Score: 13:06 Eye Response: spontaneous(4). Verbal Response: oriented(5). Motor Response: obeys ll1 commands(6). Total: 15. 13:06 Eye Response: spontaneous(4). Verbal Response: oriented(5). Motor Response: obeys ll1 commands(6). Total: 15. Trauma Score (Adult): 13:06 Eye Response: spontaneous(1); Verbal Response: oriented(1); Motor Response: obeys ll1 commands(2); Systolic BP: > 89 mm Hg(4); Respiratory Rate: 10 to 29 per min(4); Yareli Score: 15; Trauma Score: 12 ED Course: 10:04 Patient arrived in ED. mr 10:05 Ld Woodson MD is Private Physician. mr 11:16 Triage completed. iw 11:16 Arm band placed on. iw 11:21 Aneesh Bush NP is PHCP. pm1 11:21 Maria A Keys MD is Attending Physician. pm1 11:50 CT Head C Spine In Process Unspecified. EDMS 11:51 Hip Left 2 View XRAY In Process Unspecified. EDMS 11:52 XRAY Chest (1 view) In Process Unspecified. EDMS 12:00 Initial lab(s) drawn, by me, sent to lab. Inserted saline lock: 20 gauge in right kj1 antecubital area, using aseptic technique. Blood collected. 12:00 Thermoregulation: warm blanket given to patient. ll1 13:04 Landry Lyn, RN is Primary Nurse. ll1 13:09 Patient placed in an exam room, on a stretcher. ll1 14:30 Patient has correct armband on for positive identification. Call light in reach. Side ll1 rails up X 1. 14:30 No provider procedures requiring assistance completed. Patient did not have IV access ll1 during this emergency room visit. 15:43 Patient maintains SpO2 saturation greater than 95% on room air. ll1 Administered Medications: No medications were administered Intake: 15:44 PO: 0ml; Total: 0ml. ll1 Output: 15:44 Urine: 200ml; Total: 200ml. ll1 Outcome: 14:03 Discharge ordered by . pm1 14:30 Patient left the ED. ll1 14:30 Discharged to home via wheelchair. ll1 14:30 Condition: stable 14:30 Discharge instructions given to patient, Instructed on discharge instructions, follow up and referral plans. Demonstrated understanding of instructions, follow-up care. 15:44 Patient's length of stay was not longer than 2 hours. ll1 Signatures: Dispatcher [employer] Mary Blount Irene, RN RN Aneesh Wetzel, KAMAR SECURITY DIRECTOR pm1 Lois Patrick kj1 Landry Lyn RN RN ll1
--- NOTE | 2021-06-21 14:04 | EDPHYS ---
Physician Documentation [facility] Name: Mac Howe Age: 71 yrs Sex: Female : 1950 Arrival Date: 06/21/2021 Time: 10:04 Bed 14 Private MD: Ld Woodson E ED Physician Maria A Keys HPI: 06/21 11:27 This 71 yrs old Female presents to ER via Ambulatory with complaints of Fall Injury, pm1 Head Injury-Adult. 11:27 Details of fall: The patient fell from an upright position, while standing. Onset: The pm1 symptoms/episode began/occurred 2 day(s) ago. Associated injuries: The patient sustained injury to the head, pain. 11:27 Associated injuries: The patient sustained left hip. Severity of symptoms: in the pm1 emergency department the symptoms Continued headache and left hip pain. The patient has not experienced similar symptoms in the past. The patient has not recently seen a physician. Patient reports that she was at a [employer] and she fell from standing position landing onto the left side of her body. Presenting to the ER with complaints of left hip pain and left sided headache. Onset of injury 2 days ago. Patient does not recall how she fell. Patient denies any symptoms prior to syncope. Historical: - Allergies: 11:12 Aspirin; iw 11:12 MOLD; iw - Home Meds: 11:12 Metformin Oral [Active]; lisinopril Oral [Active]; Ozempic subcutaneous [Active]; iw - PMHx: 11:12 Diabetes - IDDM; Hypercholesterolemia; Hypertension; some times confused a little due iw to tbi; Tramatic Brain Injury; macular degeneration; - PSHx: 11:12 TMJ; iw - Immunization history:: Adult Immunizations Last tetanus immunization: up to date. - Immunization history: Last tetanus immunization: - up to date. - Social history:: Smoking status: Patient denies any tobacco usage or history of. ROS: 11:27 Constitutional: Negative for fever, chills, and weight loss, Cardiovascular: Negative pm1 for chest pain, palpitations, and edema, Respiratory: Negative for shortness of breath, cough, wheezing, and pleuritic chest pain, Abdomen/GI: Negative for abdominal pain, nausea, vomiting, diarrhea, and constipation, Skin: Negative for injury, rash, and discoloration. 11:27 MS/extremity: Positive for pain, of the left hip. 11:27 Neuro: Positive for headache, of the Left side. 11:27 All other systems are negative. pm1 Exam: 11:27 Constitutional: This is a well developed, well nourished patient who is awake, alert, pm1 and in no acute distress. 11:27 Chest/axilla: Normal chest wall appearance and motion. Nontender with no deformity. No lesions are appreciated. 11:27 Back: No spinal tenderness. No costovertebral tenderness. Full range of motion. Skin: Warm, dry with normal turgor. Normal color with no rashes, no lesions, and no evidence of cellulitis. 11:27 Head/face: Noted is no obvious of injury or deformity except tenderness, that is mild, of the left worship. 11:27 Neck: Exam negative for acute changes, External neck: is normal, C-spine: vertebral tenderness, is not appreciated. 11:27 Cardiovascular: Exam negative for acute changes, Rate: normal, Rhythm: regular, Pulses: no pulse deficits are appreciated, Heart sounds: normal, normal S1and S2. 11:27 Respiratory: Exam negative for acute changes, respiratory distress, shortness of breath, Breath sounds: are clear throughout. 11:27 Abdomen/GI: Exam negative for acute changes, Inspection: abdomen appears normal, Palpation: abdomen is soft and non-tender, in all quadrants. 11:27 Musculoskeletal/extremity: Extremities: all appear grossly normal, with no appreciated pain with palpation, Circulation is intact in all extremities. 11:27 Neuro: Exam negative for acute changes, Orientation: is normal, Mentation: is normal, Motor: is normal, moves all fours. Vital Signs: 11:13 BP 106 / 57; Pulse 78; Resp 16; Temp 97.7; Pulse Ox 97% on R/A; Weight 61.23 kg; Height iw 5 ft. 6 in. (167.64 cm); 11:13 Body Mass Index 21.79 (61.23 kg, 167.64 cm) iw Sibley Coma Score: 13:06 Eye Response: spontaneous(4). Verbal Response: oriented(5). Motor Response: obeys ll1 commands(6). Total: 15. 13:06 Eye Response: spontaneous(4). Verbal Response: oriented(5). Motor Response: obeys ll1 commands(6). Total: 15. Trauma Score (Adult): 13:06 Eye Response: spontaneous(1); Verbal Response: oriented(1); Motor Response: obeys ll1 commands(2); Systolic BP: > 89 mm Hg(4); Respiratory Rate: 10 to 29 per min(4); Sibley Score: 15; Trauma Score: 12 MDM: 11:47 Patient medically screened. pm1 14:01 Data reviewed: vital signs. Data interpreted: Pulse oximetry: on room air is 97 %. pm1 Interpretation: normal. Counseling: I had a detailed discussion with the patient and/or guardian regarding: the historical points, exam findings, and any diagnostic results supporting the discharge/admit diagnosis, lab results, radiology results, the need for outpatient follow up, to return to the emergency department if symptoms worsen or persist or if there are any questions or concerns that arise at home. 06/21 11:26 Order name: Basic Metabolic Panel; Complete Time: 12:43 pm06/21 11:26 Order name: CBC with Diff; Complete Time: 12:43 pm06/21 11:26 Order name: CT Head C Spine; Complete Time: 12:43 pm06/21 11:26 Order name: Hip Left 2 View XRAY; Complete Time: 12:43 pm06/21 11:26 Order name: PT-INR; Complete Time: 12:43 pm06/21 11:26 Order name: Troponin HS; Complete Time: 12:43 pm06/21 11:26 Order name: XRAY Chest (1 view); Complete Time: 12:43 pm06/21 11:26 Order name: EKG; Complete Time: 11:27 pm06/21 11:26 Order name: Cardiac monitoring; Complete Time: 13:24 pm06/21 11:26 Order name: EKG - Nurse/Tech; Complete Time: 13:24 pm06/21 11:26 Order name: IV Saline Lock; Complete Time: 13:11 pm06/21 11:26 Order name: Labs collected and sent; Complete Time: 13:11 pm06/21 11:26 Order name: O2 Per Protocol; Complete Time: 13:11 pm06/21 11:26 Order name: O2 Sat Monitoring; Complete Time: 13:11 pm1 Administered Medications: No medications were administered Disposition Summary: 06/21/21 14:03 Discharge Ordered Location: Home pm1 Problem: new pm1 Symptoms: have improved pm1 Condition: Stable pm1 Diagnosis - Fall on same level, unspecified pm1 - Headache pm1 - Dehydration pm1 Followup: pm1 - With: Emergency Department - When: As needed - Reason: Worsening of condition Followup: pm1 - With: Private Physician - When: 2 - 3 days - Reason: Recheck today's complaints, Continuance of care, Re-evaluation by your physician Discharge Instructions: - Discharge Summary Sheet pm1 - Dehydration, Elderly pm1 - General Headache Without Cause pm1 - Fall Prevention in the Home, Adult pm1 - Rehydration, Elderly pm1 Forms: - Medication Reconciliation Form pm1 - Thank You Letter pm1 - Antibiotic Education pm1 - Prescription Opioid Use pm1 Addendum: 06/23/2021 18:35 Co-signature as Attending Physician, Maria A Keys MD. m a2 Signatures: Dispatcher [employer] Audra Good, ELIZABETH RN iw Aneesh Bush, KAMAR MAINTAINER OPERATOR pm1 Maria A Keys MD MD ma2 Landry Lyn RN RN ll1
[2021-06-21 17:04] VITALS: BP 106/57; TEMP 97.7; O2SAT 97
--- NOTE | 2021-06-22 08:09 | EKG ---
Test Date: 2021-06-21 Test Time: 13:22:30 Software Writer: BEATRIS MEASUREMENT RESULTS: Intervals: Rate: 64 MA: 182 QRSD: 74 QT: 396 QTc: 408 [place]: P: 62 MA: 182 QRS: 6 T: 61 INTERPRETIVE STATEMENTS: Normal sinus rhythm Normal ECG No previous ECG available for comparison Electronically Signed On 06-22-21 08:07:02 CDT by Griffin Chavez
== END 2021-06-21 14:30 | disposition home or self-care (01) ==
LOC: ER 10:01
DX: E86.0 Dehydration (principal); M25.552 Pain in left hip; W18.30XA Fall on same level, unspecified, initial encounter; E11.9 Type 2 diabetes mellitus without complications; I10 Essential (primary) hypertension; Z87.820 Personal history of traumatic brain injury; Z88.6 Allergy status to analgesic agent; Z91.048 Other nonmedicinal substance allergy status
CPT/HCPCS: 36415; 70450; 71045; 72125; 80048; 84484; 85025; 85610; 93005; 99284

== ENCOUNTER 2022-10-27 11:14 | Emergency (ER) | payer OTHER ==
--- OUTSIDE RECORDS SUMMARY | 2022-10-27 11:18 | XMS REPORT | Continuity of Care Document ---
:1950 Author Organization [facility] t Address [address] [place] [address] [place] [id number] Care Team Providers Name Role Phone Asked, No Pcp Primary Care Physician Unavailable Basia_Brennan Attending Clinician Unavailable GENARO CHARLES Attending Clinician Unavailable Faye Admitting Clinician Unavailable Payers Payer Name Policy Type Policy Number Effective Date Expiration Date [facility] [id number] 2021 (MEDICARE 00:00:00 REPLACEMENT HMO) Problems Condition Condition Condition Status Onset Resolution Last Treating Co mments Source Name Details Category Date Date Treatment Clinician Date Closed Closed Disease Active 2015-03 [facility] displaced displaced 0-25 st fracture fracture 00:00: Hospit a of right of right 00 l patella patella with with routine routine healing healing Allergies, Adverse Reactions, Alerts Allergy Allergy Status Severity Reaction(s) Onset Inactive Treating Comm ents Source Name Type Date Date Clinician Aspirin Propensi Active [facility] ty to 8-22 st adverse 00:00: Hospita reaction 00 l s to drug Social History Social Habit Start Date Stop Date Quantity Comments Source Gender identity [facility] History of Social 2016-09-04 2016-09-[address] function 00:00:00 00:00:00 Hospital Tobacco use and 2015-10-25 2015-10-25 Smokeless [facility] 00:00:00 00:00:00 tobacco non-user Hospital Sex Assigned At [birth year] [facility] 00:[facility]00 [facility] Smoking Status Start Date Stop Date Source Never smoked tobacco [facility] Medications Ordered Filled Start Stop Current Ordering Indication Dosage Frequency Signature Comments Components Source Medication Medication Date Date Medication? Clinician (SIG) Name Name HYDROcodone Yes TK 1 T PO M ethodi -acetaminop 8-[address] hen (NORCO) 00:00: P Hospit a 7.5-325 mg 00 l per tablet MARUMET Yes TK 1 T PO Metho di 50-1,000 mg 7-[address] per tablet 00:00: Hospita 00 l simvastatin Yes TK 1 T PO M ethodi (ZOCOR) 20 7-[address] MG tablet 00:00: Hospita 00 l Immunizations Ordered Immunization Filled Immunization Date Status Commen ts Source Name Name PFIZER COVID-19 MRNA 2020-05-17 Completed Meth odist VACCINATION 00:00:00 Hospital PFIZER COVID-19 MRNA 2020-04-26 Completed Meth odist VACCINATION 00:00:00 Hospital Procedures This patient has no known procedures. Plan of Care Planned Activity Planned Date Details Comments Source Future Scheduled 2022-10-18 Screening for [facility] Test 09:57:01 malignant neoplasm of colon (procedure) [code = 908832110] Future Scheduled 2022-10-18 Screening for [facility] Test 09:57:01 malignant neoplasm of colon (procedure) [code = 097523855] Future Scheduled 2022-10-18 Screening for [facility] Test 09:57:01 malignant neoplasm of colon (procedure) [code = 837690800] Future Scheduled 2022-10-18 BREAST CANCER [facility] Test 09:57:01 SCREENING [code = BREAST CANCER SCREENING] Future Scheduled 2022-10-18 Screening for [facility] Test 09:57:01 malignant neoplasm of colon (procedure) [code = 934281781] Future Scheduled 2022-10-18 Screening for [facility] Test 09:57:01 malignant neoplasm of colon (procedure) [code = 641787296] Future Scheduled 2022-10-18 SHINGLES VACCINES (1 [facility] Test 09:57:01 of 2) [code = SHINGLES VACCINES (1 of 2)] Future Scheduled 2022-10-18 65+ [facility] 09:[facility]:01 VACCINE (1 - PCV) [code = 65+ PNEUMOCOCCAL VACCINE (1 - PCV)] Future Scheduled 2022-10-18 COVID-19 VACCINE (3 - [facility] Test 09:57:01 Pfizer series) [code = COVID-19 VACCINE (3 - Pfizer series)] Future Scheduled 2022-10-18 ZZZ INFLUENZA VACCINE [facility] Test 09:57:01 [code = ZZZ INFLUENZA VACCINE] Encounters Start End Encounter Admission Attending Care Care Encounter Source Date/Time Date/Time Type Type Clinicians Facility Department ID 2021-12-15 2021-12-15 Outpatient Iyanoye_S [facility] [id number] 00:00:00 00:00:00 [id number] Medica l Group 2021-09-16 2021-09-16 Outpatient [facility] [id number] 09:00:00 09:00:00 [id number] Medica l Group 2020-05-17 2020-05-17 Outpatient MELVIN, [facility] [id number] [address] [place] 00:00:00 00:00:00 [facility] 2020-04-26 2020-04-26 Outpatient [facility] [id number] [address] [place] 00:00:00 00:00:[address] Results This patient has no known results.
--- NOTE | 2022-10-27 11:46 | EDPHYS ---
Physician Documentation [facility] Name: Mac Howe Age: 72 yrs Sex: Female : 1950 Arrival Date: 10/27/2022 Time: 11:14 Bed 11 Private MD: Nazanin Thompson Atiq ED Physician Yash Briceno HPI: 10/27 13:03 This 72 yrs old Female presents to ER via Ambulatory with complaints of Wound Infection.rt 13:03 Patient presents to the ED with worsening pain to her back. The patient had a blackhead rt that was not in size but was squeezed about 3 days ago at her doctor's office. The patient was placed on clinda, mupirocin. States the pain worsened and there is no redness surrounding it. Denies other acute complaints at this time. Symptoms are mild in severity, aching nature, nonradiating, no other aggravating or alleviating factors.. Historical: - Allergies: 11:26 Aspirin; kl 11:26 MOLD; kl - PMHx: 11:26 Diabetes - IDDM; Hypercholesterolemia; Hypertension; macular degeneration; some times kl confused a little due to tbi; Tramatic Brain Injury; - PSHx: 11:26 TMJ; kl - Immunization history:: Adult Immunizations up to date. - Social history:: Smoking status: Patient denies any tobacco usage or history of. - Family history:: not pertinent. ROS: 13:03 Constitutional: Negative for fever, chills, and weight loss, Cardiovascular: Negative rt for chest pain, palpitations, and edema, Respiratory: Negative for shortness of breath, cough, wheezing, and pleuritic chest pain, Abdomen/GI: Negative for abdominal pain, nausea, vomiting, diarrhea, and constipation, Neuro: Negative for headache, weakness, numbness, tingling, and seizure, Psych: Negative for depression, anxiety, suicide ideation, homicidal ideation, and hallucinations. 13:03 Skin: Positive for erythema, Negative for swelling. Exam: 13:03 Constitutional: This is a well developed, well nourished patient who is awake, alert, rt and in no acute distress. Head/Face: Normocephalic, atraumatic. Chest/axilla: Normal chest wall appearance and motion. Nontender with no deformity. No lesions are appreciated. Cardiovascular: Regular rate and rhythm with a normal S1 and S2. No gallops, murmurs, or rubs. Normal PMI, no JVD. No pulse deficits. Respiratory: Lungs have equal breath sounds bilaterally, clear to auscultation and percussion. No rales, rhonchi or wheezes noted. No increased work of breathing, no retractions or nasal flaring. Abdomen/GI: Soft, non-tender, with normal bowel sounds. No distension or tympany. No guarding or rebound. No evidence of tenderness throughout. MS/ Extremity: Pulses equal, no cyanosis. Neurovascular intact. Full, normal range of motion. Neuro: Awake and alert, GCS 15, oriented to person, place, time, and situation. Cranial nerves II-XII grossly intact. Motor strength 5/5 in all extremities. Sensory grossly intact. Cerebellar exam normal. Normal gait. Psych: Awake, alert, with orientation to person, place and time. Behavior, mood, and affect are within normal limits. 13:03 Skin: Very small wound noted to the middle of the back, with erythema about 1 cm surrounding it. No purulence, no fluctuance, signs of abscess.. Vital Signs: 11:25 BP 127 / 66; Pulse 86; Resp 16; Temp 97.7(TE); Pulse Ox 99% on R/A; Weight 63.5 kg; kl Height 5 ft. 6 in. ; Pain 7/10; 11:25 Body Mass Index 22.60 (63.50 kg, 167.64 cm) kl 11:25 Pain Scale: Adult kl MDM: 11:33 Patient medically screened. rt 13:03 Differential diagnosis: Abscess, cellulitis. Data reviewed: vital signs, nurses notes. rt Test considered but Not performed: Other Details Very minimal wound noted, no signs of abscess. Stable vital signs, do not suspect necrotizing infection, labs, imaging are not indicated.. Care significantly affected by the following chronic conditions: Diabetes. Counseling: I had a detailed discussion with the patient and/or guardian regarding the historical points, exam findings, and any diagnostic results supporting the discharge/admit diagnosis, the need for outpatient follow up. ED course: We will change patient from Keflex to doxycycline for better staphylococcal coverage.. Administered Medications: 12:06 Drug: HYDROcodone-acetaminophen PO 5 mg-325 mg 1 tabs Route: PO; hb 12:06 Follow up: Response: Medication administered at discharge. Disposition Summary: 10/27/22 11:44 Discharge Ordered Location: Home rt Problem: new rt Symptoms: are unchanged rt Condition: Stable rt Diagnosis - Cellulitis of back rt Followup: rt - With: Private Physician - When: 5 - 6 days - Reason: Discharge Instructions: - Discharge Summary Sheet rt - Cellulitis, Adult rt Forms: - Medication Reconciliation Form rt - Thank You Letter rt - Antibiotic Education rt - Prescription Opioid Use rt - Patient Portal Instructions rt - Leadership Thank You Letter rt Prescriptions: - Doxycycline Monohydrate 100 mg Oral Tablet - take 1 tablet by ORAL route every 12 hours for 10 days; 20 tablet; Refills: 0, rt Product Selection Permitted Signatures: Farzana Lyn RN RN Halley Santa RN RN Yash Briceno MD MD rt
--- NOTE | 2022-10-27 11:46 | ER ---
Nurse's Notes [facility] Name: Mac Howe Age: 72 yrs Sex: Female : 1950 Arrival Date: 10/27/2022 Time: 11:14 Bed 11 Private MD: Nazanin Thompson Atiq Diagnosis: Cellulitis of back Presentation: 10/27 11: Chief complaint: Abscess on back, was drained Sunday, on Keflex and Mupirocin day 3. kl Coronavirus screen: At this time, the client does not indicate any symptoms associated with coronavirus-19. Ebola Screen: No symptoms or risks identified at this time. Initial Sepsis Screen: Does the patient meet any 2 criteria? No. Patient's initial sepsis screen is negative. Does the patient have a suspected source of infection? No. Patient's initial sepsis screen is negative. Risk Assessment: Do you want to hurt yourself or someone else? Patient reports no desire to harm self or others. Onset of symptoms was October 25, 2022. 11:25 Method Of Arrival: Ambulatory kl 11:25 Acuity: DIDI 4 kl Historical: - Allergies: 11:26 Aspirin; kl 11:26 MOLD; kl - PMHx: 11:26 Diabetes - IDDM; Hypercholesterolemia; Hypertension; macular degeneration; some times kl confused a little due to tbi; Tramatic Brain Injury; - PSHx: 11:26 TMJ; kl - Immunization history:: Adult Immunizations up to date. - Social history:: Smoking status: Patient denies any tobacco usage or history of. - Family history:: not pertinent. Vital Signs: 11:25 BP 127 / 66; Pulse 86; Resp 16; Temp 97.7(TE); Pulse Ox 99% on R/A; Weight 63.5 kg; kl Height 5 ft. 6 in. ; Pain 7/10; 11:25 Body Mass Index 22.60 (63.50 kg, 167.64 cm) kl 11:25 Pain Scale: Adult ED Course: 11:16 Patient arrived in ED. mr 11:17 Nazanin Thompson MD is Private Physician. mr 11:19 Yash Briceno MD is Attending Physician. rt 11:26 Triage completed. kl 11:27 Arm band placed on. kl Administered Medications: 12:06 Drug: HYDROcodone-acetaminophen PO 5 mg-325 mg 1 tabs Route: PO; hb 12:06 Follow up: Response: Medication administered at discharge. hb Outcome: 11:44 Discharge ordered by . rt 12:06 Patient left the ED. hb Signatures: Farzana Lyn RN RN kl Rivera, Mary mr Baxter, Heather, RN RN hb [place], Ryan, MD MD rt
[2022-10-27] MEDS ORDERED: HYDROCODONE/APAP 5/325 MG TAB ONE (12:01)
[2022-10-27 12:10] VITALS: BP 127/66; TEMP 97.7; O2SAT 99
== END 2022-10-27 12:06 | disposition home or self-care (01) ==
LOC: ER 11:14
DX: L03.312 Cellulitis of back [any part except buttock and flank] (principal)
CPT/HCPCS: 99282

== ENCOUNTER 2023-01-05 16:55 | Emergency (ER) | payer OTHER ==
--- OUTSIDE RECORDS SUMMARY | 2023-01-05 16:59 | XMS REPORT | Continuity of Care Document ---
:1950 Author Organization [facility] t Address [address] [place] [address] [place] [id number] Care Team Providers Name Role Phone Asked, No Pcp Primary Care Physician Unavailable Basia_Brennan Attending Clinician Unavailable GENARO CHARLES Attending Clinician Unavailable Faye Admitting Clinician Unavailable Payers Payer Name Policy Type Policy Number Effective Date Expiration Date [facility] [id number] 2021 (MEDICARE 00:00:00 REPLACEMENT HMO) Problems [...] Stop Date Quantity Comments Source Gender identity [facility] of Social 2016-09-04 2016-09-[address] function 00:00:00 00:00:00 Hospital Tobacco use and 2015-10-25 2015-10-25 [facility] tobacco non-user [facility] Sex Assigned At [birth year] [facility] Smoking Status Start Date Stop Date Source Never smoked tobacco [facility] Medications Ordered Filled Start Stop Current Ordering Indication Dosage Frequency Signature Comments Components Source Medication Medication Date Date Medication? Clinician (SIG) Name Name HYDROcodone Yes TK 1 T PO M ethodi -acetaminop 8-[address] [facility] ([facility]) 00:00: P Hospit a 7.5-325 mg 00 l per tablet HYDROcodone Yes TK 1 T PO M ethodi -acetaminop 8-[address] hen ([facility]CO) 00:00: P Hospit a 7.5-325 mg 00 l per tablet JANUMET Yes TK 1 T PO Metho di 50-1,000 mg 7-[address] per tablet 00:00: Hospita 00 l JANUMET Yes TK 1 T PO Metho di 50-1,000 mg 7-[address] per tablet 00:00: Hospita 00 l simvastatin Yes TK 1 T PO M ethodi (ZOCOR) 20 7-[address] [facility] tablet 00:00: Hospita 00 l simvastatin Yes TK 1 T PO M ethodi (ZOCOR) 20 7-[address] [facility] tablet 00:00: [facility]osp[facility] 00 l Immunizations Ordered Filled Immunization Date Status Comments Sourc e Immunization Name Name PFIZER COVID-19 2020-05-17 [facility]pleted [facility] PFIZER COVID-19 2020-04-26 [facility] PFIZER COVID-19 Unknown [facility] PFIZER COVID-19 Unknown [facility] Procedures This patient has no known procedures. Plan of Care Planned Activity Planned Date Details Comments Source Future Scheduled 2022-12-29 Scre[facility] Test 01:26:31 malignant neoplasm of colon (procedure) [code = 591666805] Future Scheduled 2022-12-29 [facility] Test 01:26:31 malignant neoplasm of colon (procedure) [code = 637391031] Future Scheduled 2022-12-29 [facility] Test 01:26:31 malignant neoplasm of colon (procedure) [code = 525536522] Future Scheduled 2022-12-29 BREAST CANCER [facility] Test 01:26:31 SCREENING [code = BREAST CANCER SCREENING] Future Scheduled 2022-12-29 Screening for [facility] Test 01:26:31 malignant neoplasm of colon (procedure) [code = 632748629] Future Scheduled 2022-12-29 Screening for [facility] Test 01:26:31 malignant neoplasm of colon (procedure) [code = 140420477] Future Scheduled 2022-12-29 SHINGLES VACCINES (1 Met [facility] Test 01:26:31 of 2) [code = SHINGLES VACCINES (1 of 2)] Future Scheduled 2022-12-29 65+ PNEUMOCOCCAL [facility] Test 01:26:31 VACCINE (1 - PCV) [code = 65+ PNEUMOCOCCAL VACCINE (1 - PCV)] Future Scheduled 2022-12-29 COVID-19 VACCINE (3 - [facility] Test 01:26:31 season) [code = COVID-19 VACCINE (3 - season)] Future Scheduled 2022-12-29 INFLUENZA VACCINE (#1) M [facility] Test 01:26:31 [code = INFLUENZA VACCINE (#1)] Future Scheduled 2022-10-18 Screening for [facility] Test 09:57:01 malignant neoplasm of colon (procedure) [code = 170334497] Future Scheduled 2022-10-18 Screening for [facility] Test 09:57:01 malignant neoplasm of colon (procedure) [code = 302430119] Future Scheduled 2022-10-18 Screening for [facility] Test 09:57:01 malignant neoplasm of colon (procedure) [code = 542141850] Future Scheduled 2022-10-18 BREAST CANCER [facility] Test 09:57:01 SCREENING [code = BREAST CANCER SCREENING] Future Scheduled 2022-10-18 Screening for [facility] Test 09:57:01 malignant neoplasm of colon (procedure) [code = 362051944] Future Scheduled 2022-10-18 Screening for [facility] Test 09:57:01 malignant neoplasm of colon (procedure) [code = 122394187] Future Scheduled 2022-10-18 SHINGLES VACCINES (1 Met [facility] Test 09:57:01 of 2) [code = SHINGLES VACCINES (1 of 2)] Future Scheduled 2022-10-18 65+ PNEUMOCOCCAL [facility] Test 09:57:01 VACCINE (1 - PCV) [code = 65+ PNEUMOCOCCAL VACCINE (1 - PCV)] Future Scheduled 2022-10-18 COVID-19 VACCINE (3 - Me [facility] Test 09:57:01 Pfizer series) [code = COVID-19 VACCINE (3 - Pfizer series)] Future Scheduled 2022-10-18 ZZZ INFLUENZA VACCINE [facility] Test 09:57:01 [code = ZZZ INFLUENZA VACCINE] Encounters Start End Encounter Admission Attending Care Care Encounter Source Date/Time Date/Time Type Type Clinicians Facility Department ID 2021-12-15 2021-12-15 Outpatient Iyanoye_S [facility] [id number] 00:00:00 00:00:00 [id number] [facility] 2021-09-16 2021-09-16 Outpatient [facility] [id number]- [facility] 09:00:00 09:00:00 [id number] Medica l Group 2020-05-17 2020-05-17 Outpatient FADYSAGE, [facility] [id number] [place] 00:00:00 00:00:00 GENARO [address] 2020-04-26 2020-04-26 Outpatient [facility] [id number] [place] 00:00:00 00:00:[address] Results This patient has no known results.
[2023-01-05 18:36] LABS: Absolute Lymphocytes (CBC) 2.9 K/uL (0.7-4.9); Lymphocytes % 33.4 % (15.3-44.8); MCV 90.2 fL (80-100); MPV 9.5 fL (7.6-11.3); Platelets 201 thou/uL (152-406); RBC Red Blood Cell Count 4.66 M/uL (3.86-4.86)
[2023-01-05 18:40] LABS: Specific Gravity 1.027 (1.005-1.030); Urine Bacteria None Seen /HPF (<20); Urine Bilirubin NEGATIVE (Negative); Urine Blood Negative (Negative); Urine Clarity Clear (Clear); Urine Color Light-Yellow (Yellow); Urine Glucose 4+ (Over) (Negative); Urine Mucus Slight /HPF (None Seen); Urine Protein NEGATIVE (Negative); Urine RBC <5 /HPF (None Seen); Urine Urobilinogen Normal (Normal)
[2023-01-05 18:49] LABS: ALT/SGPT 25 U/L (13-56); AST/SGOT 10 U/L (15-37); Albumin 3.6 g/dL (3.4-5.0); Alkaline Phosphatase 75 U/L (45-117); BUN Blood Urea Nitrogen 17 mg/dL (7-18); Bicarbonate 25 mEq/L (21-32); Bilirubin Total 0.2 mg/dL (0.2-1.0); Glomerular Filtration Rate 62 ml/min (=/>90); Glucose Level 356 mg/dL (74-106); Lipase 96 U/L (13-75); Sodium Level 135 mEq/L (136-145); Troponin High Sensitivity 18.9 pg/mL (<58.9)
[2023-01-05 19:02] LABS: Bilirubin Direct < 0.1 mg/dL (0-0.2); Bilirubin Indirect, Calculated ND mg/dL (0.2-0.8)
--- NOTE | 2023-01-05 20:31 | RAD REPORT ---
EXAM DESCRIPTION: CT - Head Brain Wo Cont - 01/05/2023 8:03 pm CLINICAL HISTORY: Headache COMPARISON: 2021 TECHNIQUE: Computed axial tomography of the head was obtained. IV contrast was not requested. All CT scans are performed using dose optimization technique as appropriate and may include automated exposure control or mA/KV adjustment according to patient size. FINDINGS: An intracranial bleed is not seen The ventricles are normal in caliber No extra-axial fluid collection is noted. A small area of gliosis right frontal lobe unchanged Fluid within the sinuses/ mastoids is not seen. IMPRESSION: No acute intracranial abnormality is seen If patient's symptoms persist MRI of the brain would be recommended
[2023-01-05] MEDS ORDERED: INSULIN REGULAR (HUMAN) 100 UNIT/ML ONE (20:57)
[2023-01-05] MEDS ORDERED: NA CHLORIDE 0.9% 250 ML ONE (20:58)
--- NOTE | 2023-01-05 21:58 | ER ---
Nurse's Notes [facility] Name: Mac Howe Age: 72 yrs Sex: Female : 1950 Arrival Date: 01/05/2023 Time: 16:55 Bed 10 Private MD: Diagnosis: Diabetes mellitus due to underlying condition with hyperglycemia Presentation: 01/05 17:14 Chief complaint: Patient states: sent by PCP for elevated blood sugar. Pt states that cm10 over the last 2 weeks her blood sugar has been elevated. Pt's BGL in triage was 361. Coronavirus screen: Vaccine status: Patient reports receiving the 2nd dose of the covid vaccine. Client denies travel out of the [place] in the last 14 days. Ebola Screen: Patient denies travel to an Ebola-affected area in the 21 days before illness onset. No symptoms or risks identified at this time. Initial Sepsis Screen: Does the patient meet any 2 criteria? No. Patient's initial sepsis screen is negative. Does the patient have a suspected source of infection? No. Patient's initial sepsis screen is negative. Risk Assessment: Do you want to hurt yourself or someone else? Patient reports no desire to harm self or others. Onset of symptoms was January 05, 2023. 17:14 Method Of Arrival: Ambulatory cm10 17:14 Acuity: DIDI 3 cm10 Historical: - Allergies: 17:15 Aspirin; cm10 17:15 MOLD; cm10 17:15 Metformin HCl; cm10 - PMHx: 17:15 Diabetes - IDDM; Hypercholesterolemia; Hypertension; macular degeneration; some times cm10 confused a little due to tbi; Tramatic Brain Injury; - PSHx: 17:15 TMJ; cm10 17:16 Tonsillectomy; cm10 - Immunization history:: Adult Immunizations unknown. - Social history:: Smoking status: Patient denies any tobacco usage or history of. Screenin:09 [facility] ED Fall Risk Assessment (Adult) History of falling in the last 3 months, jb4 including since admission No falls in past 3 months (0 pts) Confusion or Disorientation No (0 pts) Score/Fall Risk Level 0 - 2 = Low Risk Oriented to surroundings, Maintained a safe environment. Abuse screen: Denies threats or abuse. Nutritional screening: No deficits noted. Tuberculosis screening: No symptoms or risk factors identified. Assessment: 19:47 General: Appears in no apparent distress. comfortable, Behavior is calm, cooperative, jb4 appropriate for age. Pain: Denies pain. Neuro: Level of Consciousness is awake, alert, obeys commands, Oriented to person, place, time, situation. Cardiovascular: Patient's skin is warm and dry. Respiratory: Airway is patent Respiratory effort is even, unlabored, Respiratory pattern is regular, symmetrical. GI: No signs and/or symptoms were reported involving the gastrointestinal system. : No signs and/or symptoms were reported regarding the genitourinary system. EENT: No signs and/or symptoms were reported regarding the EENT system. Derm: Skin is intact, Skin is pink, warm \T\ dry. Musculoskeletal: Circulation, motion, and sensation intact. Range of motion: intact in all extremities. 20:41 Reassessment: Patient appears in no apparent distress at this time. Patient and/or jb4 family updated on plan of care and expected duration. Pain level reassessed. Patient is alert, oriented x 3, equal unlabored respirations, skin warm/dry/pink. 22:09 Reassessment: Patient appears in no apparent distress at this time. Patient and/or jb4 family updated on plan of care and expected duration. Pain level reassessed. Patient is alert, oriented x 3, equal unlabored respirations, skin warm/dry/pink. Vital Signs: 17:14 BP 147 / 79; Pulse 76; Resp 18; Temp 97.3(TE); Pulse Ox 100% ; Weight 72.57 kg; Height cm10 5 ft. 6 in. ; Pain 0/10; 19:47 BP 137 / 63; Pulse 63; Resp 16; Pulse Ox 100% on R/A; jb4 20:40 BP 138 / 71; Pulse 72; Resp 16; Pulse Ox 99% ; jb4 17:14 Body Mass Index 25.82 (72.57 kg, 167.64 cm) cm10 17:14 Pain Scale: Adult cm10 ED Course: 16:56 Patient arrived in ED. rg4 17:00 Gustavo Moore PA is PHCP. cp 17:00 Anurag Vizcarra MD is Attending Physician. cp 17:15 Triage completed. cm10 17:16 Arm band placed on Patient placed in waiting room. cm10 18:22 Inserted saline lock: 22 gauge in right wrist, using aseptic technique. Blood collected.zm 18:23 Initial lab(s) drawn, by me, sent to lab. 19:46 Glynn Norman, RN is Primary Nurse. jb4 20:03 CT Head Brain wo Cont In Process Unspecified. EDMS 22:09 Patient has correct armband on for positive identification. Bed in low position. Call jb4 light in reach. Side rails up X 1. Client placed on continuous cardiac and pulse oximetry monitoring. NIBP monitoring applied. 22:09 No provider procedures requiring assistance completed. IV discontinued, intact, jb4 bleeding controlled, No redness/swelling at site. Pressure dressing applied. Administered Medications: 20:42 Not Given (Physician Discretion): insulin regular human10 units IVP once cp 20:49 Drug: NS 0.9% IV 250 ml IV at bolus once Route: IV; Rate: bolus; Site: right wrist; jb4 20:50 Drug: Insulin Regular Human Sub-Q 10 units Sub-Q once {Co-Signature: as6 (arturo Tirado RN).} Route: Sub-Q; Site: right lower abdomen; Medication: 22:09 VIS not applicable for this client. jb4 Outcome: 21:57 Discharge ordered by MD. cp 22:09 Discharged to home ambulatory, jb4 22:09 Condition: stable 22:09 Discharge instructions given to patient, Instructed on discharge instructions, follow up and referral plans. Demonstrated understanding of instructions, follow-up care, 22:10 Patient left the ED. jb4 Signatures: Dispatcher [employer] [facility] Gustavo Moore PA PA cp Garcia, Rubi rg4 Glynn Norman, Sandy Roa RN, Clarissa, RN RN cm10 Chapito Tirado RN as6
--- NOTE | 2023-01-05 21:58 | EDPHYS ---
Physician Documentation [facility] Name: Mac Howe Age: 72 yrs Sex: Female : 1950 Arrival Date: 01/05/2023 Time: 16:55 Bed 10 Private MD: ED Physician Anurag Vizcarra HPI: 01/05 17:30 This 72 yrs old Female presents to ER via Ambulatory with complaints of Abnormal Lab cp Results. 17:30 The patient or guardian reports hyperglycemia. cp 17:30 Associated signs and symptoms: Pertinent positives: headache. The patient has been cp recently seen by a physician: the patient's primary care provider. 17:30 Onset: The symptoms/episode began/occurred 2 week(s) ago. cp 17:30 Current symptoms: In the emergency department the patient's symptoms are unchanged from cp the initial presentation, despite home interventions. 17:30 Patient reports she is prescribed insulin and Metformin for diabetes, but stopped cp taking Metformin due to allergy. 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 - Social history:: Smoking status: Patient denies any tobacco usage or history of. ROS: 17:35 Constitutional: Negative for body aches, chills, fever, poor PO intake, cp 17:35 Eyes: Negative for injury, pain, redness, and discharge, cp 17:35 ENT: Negative for drainage from ear(s), ear pain, sore throat, difficulty swallowing, difficulty handling secretions, 17:35 Neck: Negative for pain with movement, pain at rest, stiffness, 17:35 Cardiovascular: Negative for chest pain, edema, palpitations, 17:35 Respiratory: Negative for cough, shortness of breath, wheezing, 17:35 Abdomen/GI: Negative for abdominal pain, vomiting, diarrhea, constipation, 17:35 Neuro: Positive for headache, Negative for altered mental status, dizziness, syncope, weakness, 17:35 All other systems are negative, Exam: 17:40 Constitutional: The patient appears in no acute distress, alert, awake, cp non-diaphoretic, non-toxic, well developed, well nourished, 17:40 Head/Face: Normocephalic, atraumatic. cp 17:40 Eyes: Periorbital structures: appear normal, Pupils: equal, round, and reactive to light and accomodation, Extraocular movements: intact throughout, Conjunctiva: normal, no exudate, no injection, Sclera: no appreciated abnormality, Lids and lashes: appear normal, bilaterally, 17:40 ENT: External ear(s): are unremarkable, Nose: is normal, Mouth: Lips: moist, Oral mucosa: pink and intact, moist, Posterior pharynx: Airway: no evidence of obstruction, patent, 17:40 Neck: ROM/movement: is normal, is supple, without pain, no range of motions limitations, 17:40 Chest/axilla: Inspection: normal, 17:40 Cardiovascular: Rate: normal, Rhythm: regular, 17:40 Respiratory: the patient does not display signs of respiratory distress, Respirations: normal, no use of accessory muscles, no retractions, labored breathing, is not present, Breath sounds: are clear throughout, no decreased breath sounds, no stridor, no wheezing, 17:40 Abdomen/GI: Inspection: abdomen appears normal, Palpation: abdomen is soft and non-tender, in all quadrants, 17:40 Back: pain, is absent, ROM is normal, 17:40 Skin: cellulitis, is not appreciated, no rash present. 17:40 Neuro: Orientation: to person, place \T\ time. Mentation: is normal, Motor: moves all fours, strength is normal, Sensation: is normal, 19:49 ECG was reviewed by the Attending Physician. cp Vital Signs: 17:14 BP 147 / 79; Pulse 76; Resp 18; Temp 97.3(TE); Pulse Ox 100% ; Weight 72.57 kg; Height cm10 5 ft. 6 in. ; Pain 0/10; 19:47 BP 137 / 63; Pulse 63; Resp 16; Pulse Ox 100% on R/A; jb4 20:40 BP 138 / 71; Pulse 72; Resp 16; Pulse Ox 99% ; jb4 17:14 Body Mass Index 25.82 (72.57 kg, 167.64 cm) cm10 17:14 Pain Scale: Adult cm10 MDM: 17:17 Patient medically screened. cp 19:00 Differential diagnosis: Mesilla's syndrome, diabetes insipidus, DKA, hyperglycemia, cp hypothyroidism, thyroid storm. 21:56 Data reviewed: vital signs, nurses notes, lab test result(s), radiologic studies, CT cp scan. 21:56 Consideration of Admission/Observation Escalation of care including cp admission/observation considered. I considered the following discharge prescriptions or medication management in the emergency department Medications were administered in the Emergency Department. See MAR. Care significantly affected by the following chronic conditions: Diabetes, Hypertension. Counseling: I had a detailed discussion with the patient and/or guardian regarding the historical points, exam findings, and any diagnostic results supporting the discharge/admit diagnosis, lab results, radiology results, the need for outpatient follow up, a family practitioner, to return to the emergency department if symptoms worsen or persist or if there are any questions or concerns that arise at home. Response to treatment: the patient's symptoms have markedly improved after treatment, and as a result, I will discharge patient. 01/05 17:23 Order name: Basic Metabolic Panel; Complete Time: 19:35 01/05 19:35 Interpretation: Normal except: NA 135; GLUC 356; GFR 62. 01/05 17:23 Order name: CBC with Diff; Complete Time: 19:35 01/05 17:23 Order name: LFT's; Complete Time: 19:35 01/05 17:23 Order name: Magnesium; Complete Time: 19:35 01/05 17:23 Order name: Troponin HS; Complete Time: 19:35 01/05 17:23 Order name: Urinalysis W/Microscopic; Complete Time: 19:35 01/05 17:23 Order name: Lipase; Complete Time: 19:35 01/05 17:25 Order name: Glucose, Ancillary Testing; Complete Time: 19:35 EDMS 01/05 20:51 Order name: Glucose, Ancillary Testing; Complete Time: 21:34 EDMN 01/05 21:35 Interpretation: Reviewed. 01/05 21:59 Order name: Glucose, Ancillary Testing EDMN 01/05 19:36 Order name: CT Head Brain wo Cont; Complete Time: 20:42 01/05 20:43 Interpretation: Report reviewed. 01/05 17:23 Order name: EKG; Complete Time: 17:24 cp 01/05 17:23 Order name: Cardiac monitoring; Complete Time: 19:47 cp 01/05 17:23 Order name: EKG - Nurse/Tech; Complete Time: 19:47 cp 01/05 17:23 Order name: IV Saline Lock; Complete Time: 18:23 cp 01/05 17:23 Order name: Labs collected and sent; Complete Time: 18:23 cp 01/05 17:23 Order name: O2 Per Protocol; Complete Time: 19:27 cp 01/05 17:23 Order name: O2 Sat Monitoring; Complete Time: 19:27 cp EC:49 Rate is 65 beats/min. Rhythm is regular. MI interval is normal. QRS interval is normal. cp QT interval is normal. T waves are Inverted in leads III, aVR. Interpreted by me. Reviewed by me. Administered Medications: 20:42 Not Given (Physician Discretion): insulin regular human10 units IVP once cp 20:49 Drug: NS 0.9% IV 250 ml IV at bolus once Route: IV; Rate: bolus; Site: right wrist; jb4 20:50 Drug: Insulin Regular Human Sub-Q 10 units Sub-Q once {Co-Signature: as6 (arturo Tirado RN).} Route: Sub-Q; Site: right lower abdomen; Disposition: 01/06 06:59 Co-signature as Attending Physician, Anurag Vizcarra MD I reviewed the patient's care rn provided by the Advanced Practice Provider and agree with the diagnosis and treatment plan. Disposition Summary: 01/05/23 21:57 Discharge Ordered Notes: Location: Home cp Problem: chronic cp Symptoms: have improved cp Condition: Stable cp Diagnosis - Diabetes mellitus due to underlying condition with hyperglycemia cp Followup: cp - With: Private Physician - When: 2 - 3 days - Reason: Recheck today's complaints Discharge Instructions: - Discharge Summary Sheet cp - Hyperglycemia cp - Daily Diabetes Mellitus Record cp - Blood Glucose Monitoring, Adult cp - Diabetes Mellitus and Nutrition, Adult cp Forms: - Medication Reconciliation Form cp - Thank You Letter cp - Antibiotic Education cp - Prescription Opioid Use cp - Patient Portal Instructions cp - Leadership Thank You Letter cp Signatures: Dispatcher [employer] Anurag Galvan MD MD rn Page, Corey, PA PA cp Glynn Norman RN RN jb4 Martinez, Clarissa, RN RN [id number] Chapito Tirado RN as6 Corrections: (The following items were deleted from the chart) 01/05 22:10 17:23 BETA HYDROXYBUTYRATE+C.LAB.BRZ ordered. cp jb4 01/06 21:26 11 17:30 Onset: The symptoms/episode began/occurred at an unknown time. cp cp
[2023-01-05 22:45] VITALS: TEMP 97.3
[2023-01-05 22:48] VITALS: BP 138/71; O2SAT 99
== END 2023-01-05 22:10 | disposition home or self-care (01) ==
LOC: ER 16:55
DX: E11.65 Type 2 diabetes mellitus with hyperglycemia (principal); I10 Essential (primary) hypertension; Z88.6 Allergy status to analgesic agent; Z88.8 Allergy status to other drugs, medicaments and biological substances; Z91.048 Other nonmedicinal substance allergy status; Z87.820 Personal history of traumatic brain injury
CPT/HCPCS: 93005; 85025; 81001; 80048; 36415; 83735; 82947 ×3; 80076; 84484; 83690; 70450; 96372; 96374; 99284; J1815; J7050